=== PATIENT | female | born 1970 | race Caucasian/White ===

== ENCOUNTER 2018-09-10 14:13 | Outpatient (CLI) | payer MEDICARE, MEDICAID | END 2018-09-10 14:14 | disposition home or self-care (01) | LOC: RAD 14:13 | DX: Z12.31 Encounter for screening mammogram for malignant neoplasm of breast (principal) ==

== ENCOUNTER 2018-10-15 07:34 | Outpatient (CLI) | payer MEDICARE, MEDICAID | END 2018-10-15 07:35 | disposition home or self-care (01) | LOC: CARDIO 07:34 ==